=== PATIENT | male | born 1985 | race Caucasian/White ===

== ENCOUNTER 2020-08-07 14:45 | Emergency (ER) | payer SELFPAY ==
--- NOTE | 2020-08-07 16:45 | RAD ---
Chest 2 views HISTORY: Dyspnea. Chest pain. COVID exposure. FINDINGS: Cardiac silhouette and pulmonary vasculature are unremarkable. Mediastinum is midline. Mild curvature of the thoracic spine. Lungs are well-inflated. No airspace consolidation, pneumothorax, or pleural fluid. Metallic clips overlie the right axilla. IMPRESSION : No acute abnormalities are demonstrated.
[2020-08-08 02:10] LABS: SARS-CoV-2 MS2 Positive; SARS-CoV-2 N Gene Negative; SARS-CoV-2 S Gene Negative; SARS-CoV-2 by NAA Not Detected (NotDetected); SARS-CoV-2 orf1ab Negative
== END 2020-08-07 17:20 | disposition home or self-care (01) ==
LOC: NAV ERS 14:45
DX: J20.9 Acute bronchitis, unspecified (principal); Z20.828 Contact with and (suspected) exposure to other viral communicable diseases; F17.210 Nicotine dependence, cigarettes, uncomplicated
CPT/HCPCS: 71046; 87635; U0003